=== PATIENT | male | born 1950 | race Caucasian/White ===

== ENCOUNTER 2018-02-13 10:29 | Observation (INO) | payer MEDICARE, OTHER ==
[2018-02-13] MEDS: DIPHENHYDRAMINE 50 MG CAP PO (11:00)
[2018-02-13] MEDS: DIAZEPAM 5 MG TAB PO (11:00)
[2018-02-13] MEDS ORDERED: SOD CHLORIDE 0.45% 1,000 ML IV (11:00)
[2018-02-13 11:31] LABS: ADD MAN DIFF? NO
[2018-02-13 11:36] LABS: BASOPHILS % 0.1 % (0.0-2.0); EOSINOPHILS % 0.6 % (0.0-7.0); HEMATOCRIT 38.3 % (42.0-52.0); HEMOGLOBIN 11.5 g/dl (14.0-18.0); LYMPHOCYTES # 1.2 10^3/ul (0.8-2.9); LYMPHOCYTES % 16.8 % (15.0-51.0); MEAN CORPUSCULAR HEMOGLOBIN 26.6 pg (29.0-33.0); MEAN CORPUSCULAR VOLUME 88.5 fl (82.0-101.0); MEAN PLATELET VOLUME 10.9 fl (7.4-10.4); MONOCYTE # 0.6 10^3/ul (0.3-0.9); MONOCYTES % 8.1 % (0.0-11.0); NEUTROPHIL # 5.3 10^3/ul (1.6-7.5); NEUTROPHILS % 74.1 % (39.0-77.0); PLATELET COUNT 126 10^3/UL (140-415); POSITIVE DIFF @See below; RED BLOOD COUNT 4.33 10^6/ul (4.70-6.10); RED CELL DISTRIBUTION WIDTH 14.6 % (11.5-14.5)
[2018-02-13 11:36] LABS: WHITE BLOOD COUNT 7.2 10^3/ul (4.8-10.8)
[2018-02-13 11:57] LABS: ALANINE AMINOTRANSFERASE 27 IU/L (13-69); ALBUMIN 3.6 g/dl (3.3-4.9); ALBUMIN/GLOBULIN RATIO 1.44; ALKALINE PHOSPHATASE 79 IU/L (42-121); ANION GAP 10 (8-16); ASPARTATE AMINO TRANSFERASE 20 IU/L (15-46); BILIRUBIN,INDIRECT 0.7 mg/dl (0-1.1); BILIRUBIN,TOTAL 0.7 mg/dl (0.2-1.3); CARBON DIOXIDE 33 mmol/L (21-31); CHLORIDE 107 mmol/L (97-110); CHOLESTEROL 103 mg/dl (100-200); GLUCOSE 92 mg/dl (70-220); LDL CHOLESTEROL,CALCULATED 43 mg/dl; TOTAL PROTEIN 6.1 g/dl (6.1-8.1); TRIGLYCERIDES 49 mg/dl (0-149)
[2018-02-13 11:59] LABS: INR 1.23; PROTIME 15.7 Sec (11.9-14.9); PT RATIO 1.2
[2018-02-13 12:00] LABS: PARTIAL THROMBOPLASTIN TIME 33.7 Sec (25.0-35.0)
[2018-02-13 12:04] LABS: BLOOD UREA NITROGEN 19 mg/dl (7-20); CALCIUM 8.7 mg/dl (8.4-10.2); CREATININE 1.08 mg/dl (0.61-1.24); HDL CHOLESTEROL 50 mg/dl (30-78); POTASSIUM 4.1 mmol/L (3.5-5.1); SODIUM 146 mmol/L (135-144)
[2018-02-13] MEDS ORDERED: IODIXANOL LOCM 100 ML BTL (12:28)
[2018-02-13] MEDS ORDERED: HEPARIN 1000 UNITS/ML 10 ML INJ (12:28)
[2018-02-13] MEDS ORDERED: VERAPAMIL 5 MG INJ (12:28)
[2018-02-13] MEDS ORDERED: LIDOCAINE 1% (MDV) 20 ML INJ (12:28)
[2018-02-13] MEDS ORDERED: MIDAZOLAM 1 MG/ML 2 ML INJ (12:28)
[2018-02-13] MEDS ORDERED: FENTAnyl 50 MCG/ML VIAL (12:28)
[2018-02-13] MEDS ORDERED: SOD CHLORIDE 0.9% 500 ML (12:29)
[2018-02-13] MEDS ORDERED: NITROGLYCERIN (IC) 100 MCG/ML INJ (12:29)
[2018-02-13] MEDS ORDERED: hydrALAzine 20 MG INJ (13:45)
[2018-02-13] MEDS ORDERED: ACETAMINOPHEN 325 MG TAB PO (14:30)
[2018-02-13] MEDS ORDERED: AL HYDROX/MG HYDROX/SIMETH 30 ML CUP PO (14:30)
[2018-02-13] MEDS: morphine 2 MG INJ IV (14:55)
[2018-02-13] MEDS ORDERED: hydrALAzine 20 MG INJ IV (15:00)
[2018-02-13] MEDS: AMLODIPINE 5 MG TAB PO (15:07)
[2018-02-13] MEDS: SOD CHLORIDE 0.9% 1,000 ML IV (15:33)
[2018-02-13] MEDS: FAMOTIDINE 20 MG TAB PO (15:50)
[2018-02-13] MEDS: ONDANSETRON 4 MG INJ IV (18:32)
[2018-02-13] MEDS ORDERED: AZITHROMYCIN 250 MG TAB PO (21:00)
[2018-02-13] MEDS: BENAZEPRIL 5 MG TAB PO (22:10)
[2018-02-13] MEDS: WARFARIN 5 MG TAB PO (22:10)
[2018-02-14] MEDS: ASPIRIN (EC) 81 MG TAB PO (09:20)
[2018-02-14] MEDS: BENAZEPRIL 5 MG TAB PO (09:20)
[2018-02-14 12:24] LABS: ADD MAN DIFF? NO; BASOPHILS % 0.3 % (0.0-2.0); EOSINOPHILS % 0.1 % (0.0-7.0); HEMATOCRIT 38.4 % (42.0-52.0); HEMOGLOBIN 11.7 g/dl (14.0-18.0); LYMPHOCYTES # 1.1 10^3/ul (0.8-2.9); LYMPHOCYTES % 14.5 % (15.0-51.0); MEAN CORPUSCULAR HEMOGLOBIN 27.1 pg (29.0-33.0); MEAN CORPUSCULAR HGB CONC 30.5 g/dl (32.0-37.0); MEAN CORPUSCULAR VOLUME 89.1 fl (82.0-101.0); MEAN PLATELET VOLUME 11.8 fl (7.4-10.4); MONOCYTE # 0.8 10^3/ul (0.3-0.9); MONOCYTES % 10.8 % (0.0-11.0); NEUTROPHIL # 5.7 10^3/ul (1.6-7.5); PLATELET COUNT 112 10^3/UL (140-415); POSITIVE DIFF @See below; RED BLOOD COUNT 4.31 10^6/ul (4.70-6.10); RED CELL DISTRIBUTION WIDTH 15.1 % (11.5-14.5)
[2018-02-14 12:24] LABS: WHITE BLOOD COUNT 7.7 10^3/ul (4.8-10.8)
[2018-02-14 12:43] LABS: ANION GAP 9 (8-16); BLOOD UREA NITROGEN 22 mg/dl (7-20); CALCIUM 8.7 mg/dl (8.4-10.2); CARBON DIOXIDE 32 mmol/L (21-31); CHLORIDE 103 mmol/L (97-110); CREATININE 1.05 mg/dl (0.61-1.24); GLUCOSE 101 mg/dl (70-220); POTASSIUM 4.2 mmol/L (3.5-5.1); SODIUM 140 mmol/L (135-144)
[2018-02-14 17:10] LABS: TROPONIN-I 0.034 ng/ml (0.000-0.120)
[2018-02-14] MEDS: WARFARIN 5 MG TAB PO (17:21)
== END 2018-02-14 18:45 | disposition home or self-care (01) ==
LOC: SDS 10:29 → REC 19:02 → MS4 19:30
DX: I25.10 Atherosclerotic heart disease of native coronary artery without angina pectoris (principal); I25.82 Chronic total occlusion of coronary artery; I10 Essential (primary) hypertension; E78.5 Hyperlipidemia, unspecified; I48.91 Unspecified atrial fibrillation; Z79.01 Long term (current) use of anticoagulants; Z95.810 Presence of automatic (implantable) cardiac defibrillator
CPT/HCPCS: 71045; 80048; 80053; 80061; 84484; 85025; 85610; 85730; 93005; 93458; G0378

== ENCOUNTER 2018-08-07 08:51 | Day surgery (SDC) | payer MEDICARE, OTHER ==
[~2018-08-07 08:51] MED LIST: CLINDAMYCIN 900 MG/50 ML D5W IVPB IVPB; SOD CHLORIDE 0.45% 1,000 ML IV
[2018-08-07 09:48] LABS: ADD MAN DIFF? NO
[2018-08-07 09:52] LABS: BASOPHILS % 0.2 % (0.0-2.0); EOSINOPHILS % 0.7 % (0.0-7.0); HEMATOCRIT 41.8 % (42.0-52.0); LYMPHOCYTES # 1.3 10^3/ul (0.8-2.9); LYMPHOCYTES % 23.6 % (15.0-51.0); MEAN CORPUSCULAR HEMOGLOBIN 28.1 pg (29.0-33.0); MEAN CORPUSCULAR HGB CONC 31.1 g/dl (32.0-37.0); MEAN CORPUSCULAR VOLUME 90.5 fl (82.0-101.0); MEAN PLATELET VOLUME 11.2 fl (7.4-10.4); MONOCYTE # 0.4 10^3/ul (0.3-0.9); MONOCYTES % 7.2 % (0.0-11.0); NEUTROPHIL # 3.7 10^3/ul (1.6-7.5); NEUTROPHILS % 67.9 % (39.0-77.0); PLATELET COUNT 109 10^3/UL (140-415); POSITIVE DIFF @See below; RED BLOOD COUNT 4.62 10^6/ul (4.70-6.10); RED CELL DISTRIBUTION WIDTH 14.2 % (11.5-14.5)
[2018-08-07 09:52] LABS: WHITE BLOOD COUNT 5.4 10^3/ul (4.8-10.8)
[2018-08-07 10:10] LABS: ANION GAP 6 (5-13); BLOOD UREA NITROGEN 22 mg/dl (7-20); CALCIUM 8.9 mg/dl (8.4-10.2); CARBON DIOXIDE 33 mmol/L (21-31); CHLORIDE 103 mmol/L (97-110); CHOL/HDL RATIO 2.3 RATIO; CHOLESTEROL 120 mg/dl (100-200); CREATININE 1.04 mg/dl (0.61-1.24); Estimated GFR > 60 mL/min (>60); GLUCOSE 103 mg/dl (70-220); HDL CHOLESTEROL 51 mg/dl (30-78); INR 1.07; LDL CHOLESTEROL,CALCULATED 58 mg/dl; POTASSIUM 4.1 mmol/L (3.5-5.1); PT RATIO 1.1; SODIUM 142 mmol/L (135-144); TRIGLYCERIDES 55 mg/dl (0-149)
[2018-08-07 10:11] LABS: PARTIAL THROMBOPLASTIN TIME 31.3 Sec (23.0-35.0)
[2018-08-07] MEDS: POLYMYXIN/BACITRACIN 1L IRRIG (11:07)
[2018-08-07] MEDS: LIDOCAINE 1% (STERILE-PAK) 30 ML INJ (11:07)
[2018-08-07] MEDS ORDERED: PROPOFOL 20 ML (11:21)
[2018-08-07] MEDS ORDERED: LIDOCAINE 2% (SDV) 5 ML INJ (11:21)
[2018-08-07] MEDS ORDERED: FENTAnyl 50 MCG/ML VIAL (11:21)
[2018-08-07] MEDS ORDERED: GLYCOPYRROLATE 0.4 MG INJ (11:21)
[2018-08-07] MEDS ORDERED: NEOSTIGMINE 3 MG/3 ML SYRINGE (11:21)
[2018-08-07] MEDS ORDERED: MIDAZOLAM 1 MG/ML 2 ML INJ (11:21)
[2018-08-07] MEDS ORDERED: ROCURONIUM 50 MG INJ (11:21)
[2018-08-07] MEDS: ROPIVACAINE 0.5 % 30 ML VIAL (11:52)
[2018-08-07] MEDS ORDERED: FLUMAZENIL 0.5 MG INJ (11:59)
[2018-08-07] MEDS ORDERED: morphine 2 MG INJ IV (13:00)
== END 2018-08-07 15:31 | disposition home or self-care (01) ==
LOC: SDS 08:51
DX: Z45.02 Encounter for adjustment and management of automatic implantable cardiac defibrillator (principal); I42.9 Cardiomyopathy, unspecified; I10 Essential (primary) hypertension; I48.2 Chronic atrial fibrillation; I07.1 Rheumatic tricuspid insufficiency; I47.2 Ventricular tachycardia; R94.39 Abnormal result of other cardiovascular function study; Z79.01 Long term (current) use of anticoagulants; Z79.82 Long term (current) use of aspirin
CPT/HCPCS: 33262; 71045; 80048; 80061; 85025; 85610; 85730; 93005